=== PATIENT | female | born 1965 | race Caucasian/White ===

== ENCOUNTER 2021-08-07 06:21 | Day surgery (SDC) | payer MEDICARE, OTHER ==
[~2021-08-07] VITALS: Ht 160 cm; Wt 70.4 kg
[2021-08-07] MEDS ORDERED: LIDOCAINE 2% 30 ML JELLY TP ONE (06:22)
[2021-08-07] MEDS ORDERED: ALBUTEROL SULFATE 2.5 MG/0.5 ML NEB SOLUTION NEB ONE (06:22)
[2021-08-07] MEDS ORDERED: BENZOCAINE 20% 50 MCG/SPRAY 57 GM TP ONE (06:22)
[2021-08-07] MEDS ORDERED: LIDOCAINE 4% 50 ML SOLUTION TP ONE (06:22)
[2021-08-07] MEDS ORDERED: SODIUM CHLORIDE 0.9% 1,000 ML IV ONE (06:30)
[2021-08-07 06:37] LABS: COVID AG,FIA SOURCE NASOPHARYNGEAL
[2021-08-07] MEDS ORDERED: METF-446 PO (07:14)
[2021-08-07] MEDS ORDERED: DILT120C92 PO (07:14)
[2021-08-07] MEDS ORDERED: LORA-550 PO (07:14)
[2021-08-07] MEDS ORDERED: SEMA14TA PO (07:19)
[2021-08-07] MEDS ORDERED: FURO20 PO (07:19)
[2021-08-07] MEDS ORDERED: ASPI-1450 PO (07:19)
[2021-08-07] MEDS ORDERED: PIOG45TA4 PO (07:19)
[2021-08-07] MEDS ORDERED: ATOR20TA86 PO (07:19)
[2021-08-07 07:27] LABS: GLUCOMETER DEV NAME(LOC) SDS.; GLUCOSE,POINT OF CARE 145 MG/DL (70-110)
[2021-08-07] MEDS ORDERED: FentaNYL CITRATE PF 100 MCG/2 ML VIAL ONE (07:40)
[2021-08-07] MEDS ORDERED: MIDAZOLAM HCL 5 MG/ML VIAL ONE (07:40)
== END 2021-08-07 10:25 | disposition home or self-care (01) ==
LOC: SURGERY 06:21
PROVIDERS: ATTEND Internal Medicine Critical Care Medicine
DX: J38.4 Edema of larynx (principal); B37.0 Candidal stomatitis; E11.9 Type 2 diabetes mellitus without complications; J45.909 Unspecified asthma, uncomplicated; Z79.899 Other long term (current) drug therapy; Z72.89 Other problems related to lifestyle; Z88.8 Allergy status to other drugs, medicaments and biological substances; Z98.890 Other specified postprocedural states
CPT/HCPCS: 31623; 31624; 71045; 82962; 87015; 87070; 87101; 87206; 87220; 87252; 87426; 88184; 88185; C9803; J2250; J3010; 88112; 88312; J7613; Z7610